=== PATIENT | female | born 1980 | race Caucasian/White ===

== ENCOUNTER 2016-09-12 23:11 | Emergency (ER) | payer OTHER ==
[2016-09-12] MEDS ORDERED: NORMAL SALINE 10 ML SYRINGE FLUSH IVP PRN (23:29)
[2016-09-12 23:34] VITALS: RESP 18; TEMP 97.6
--- NOTE | 2016-09-12 23:40 | PDOC ---
Female Problem HPI - General Chief Complaint: Vag Complaint/Bleed, <20WK IUP Stated Complaint: Heavy bleeding tonight Date Seen by Provider: 09/12/16 Time Seen by Provider: 23:34 Source: POSITIVE: Patient Exam Limitations: POSITIVE: No limitations Nurse's Notes Reviewed & Considered: Yes - History of Present Illness Initial Comments: Patient comes in today with chief complaint of vaginal bleeding. Patient is presently 8 weeks gestation, , status post normal vaginal delivery. Earlier today she was in her normal state of health and stood up to go to the bathroom tonight when she began having heavy vaginal bleeding. She states the blood is dark red she denies any fevers chills or sweats, nausea vomiting or diarrhea, no rashes, denies any abdominal pain or pelvic pain. She has not seen an OB for this present . Body Location Affected: REPORTS: Abdomen Timing: REPORTS: Abrupt Duration: 1 hour Severity: Moderate Quality: REPORTS: Other (Vaginal bleeding) Context: REPORTS: Known Vaginal Bleeding: REPORTS: Abnormal Bleeding, Similar to Periods : 2 Para: 1 : REPORTS: , Positive Test at Home Sexual History: REPORTS: Active Urinary Symptoms: REPORTS: Other (No urinary symptoms) Discharge: REPORTS: Vaginal Discharge (Bloody discharge) Similar Symptoms Previously: No Recent Care Received: REPORTS: Denies Any Prior Injuries Related to Current Complaint?: No - Patient Home Medications Home Medications: Home Medications Pnv No.122/Iron/Folic Acid [ Multi Tablet] 1 tab PO DAILY 09/12/16 - Patient Allergies Allergies/Adverse Reactions: Allergies Allergy/AdvReac Type Severity Reaction Status Date / Time Sulfa (Sulfonamide Allergy Mild VOMITING Verified 09/12/16 23:15 Antibiotics) Past Medical History - heen HEENT History: Denies History Cardiovascular History: Denies History Respiratory History: Denies History Gastrointestinal History: Denies History Genitourinary History: Denies History Endocrine History: Denies History Musculoskeletal History: Denies History Prosthesis or Implant: No Neurological History: Denies History Blood Disorders: Denies History Psychiatric History: Denies History Female Reproductive History: Denies History LMP: 07/15/2016 : 2 Para: 1 Cancer History: Denies History In Past Year Been Physically Harmed or Verbally Threatened: No History of MDRO: No Tobacco Use: Never Smoker Alcohol Use: None Substance Use Type: None Previous Surgical History: Yes Type / Date of Surgery: eustachian tubes, tonsillitis Significant Family History: No pertinent family hx ROS - Limitations ROS Limitations: No Limitations Constitution: REPORTS: Denies Symptoms Cardiovascular: REPORTS: Denies Cardiac Symptoms Respiratory: REPORTS: Denies Resp Symptoms Neurological: REPORTS: Denies Neuro Symptoms Gastrointestinal: REPORTS: Denies GI Symptoms Endocrine: REPORTS: Denies Symptoms Musculoskeletal: REPORTS: Denies MS Symptoms Genitourinary: REPORTS: Other (Dark red vaginal discharge.) Eyes: REPORTS: Denies Symptoms ENT: REPORTS: Denies Symptoms Skin: REPORTS: Denies Skin Symptoms Lympathic: REPORTS: Denies Lympathic Symptoms Immunologic: POSITIVE: Denies Symptoms Psychiatric: POSITIVE: Denies Psych Symptoms Female Genitourinary Exam - General Appearance General Appearance: POSITIVE: Alert, Cooperative, No Acute Distress, No Evidence of Trauma - HEENT HEENT: POSITIVE: Head Inspection Nml, Eyes Inspection Nml, Ears Inspection Nml, Nose Inspection Nml, Oral/Dental Inspect. Nml, Pharynx Inspect. Nml, PERRL, EOMI - Neck Neck: POSITIVE: Normal Inspection, No Apparent Injury - Cardiovascular Cardiovascular: POSITIVE: Regular Rate and Rhythm, Heart Sounds Normal - Abdomen Abdomen: POSITIVE: Soft, Normal Bowel Sounds, Non-Tender, No Distention, No Organomegaly - Back Back: POSITIVE: Normal Inspection - Skin Skin: POSITIVE: Intact, Normal For Race, Warm, Dry, No Rash - Extremities Extremity: Non-Tender: (All Extremities), Normal ROM: (All Extremities), Normal Inspection: (All Extremities) - Neurological / Psychological Neurological: POSITIVE: Affect Apporpriate Female Genitourinary Progress - Results Reviewed by me Xrays/CTs/US Reviewed by me: Yes Discussed with Radiologist: Yes Lab Results Reviewed: Yes Lab Results:: Laboratory Results 09/12/16 09/12/16 09/13/16 Range/Units 23:29 23:34 01:20 WBC 14.45 H (4.8-10.8) 10^3/uL RBC 4.36 (4.20-5.40) 10^6/uL Hgb 13.0 (12.0-16.0) g/dL Hct 38.3 (37.0-47.0) % MCV 87.8 (81-99) FL MCH 29.8 (27-31) PG MCHC 33.9 (33-37) g/dL RDW Std Deviation 40.6 (39-50) fL RDW Coeff of Urban 12.8 (11.5-14.5) % Plt Count 446 H (140-350) 10*3/uL MPV 10.8 (7.4-12.2) FL Immature Gran % (Auto) 0.2 (0-5) % Neut % (Auto) 56.3 (50-80) % Lymph % (Auto) 33.1 (10-50) % Potter % (Auto) 8.2 (5-15) % Eos % (Auto) 1.9 (0-8) % Baso % (Auto) 0.3 (0-1) % Immature Gran # (Auto) 0.03 10*3/UL Neut # (Auto) 8.12 10*3/UL Lymph # (Auto) 4.79 10*3/uL Potter # (Auto) 1.18 H (0.3-0.8) 10*3/UL Eos # (Auto) 0.28 10*3/UL Baso # (Auto) 0.05 10*3/UL WBC Morphology Comment Normal morphology (NORM) Plt Morphology Comment Normal morphology (NORM) RBC Morph Comment Normal morphology (NORM) Sodium 137 (135-145) meq/L Potassium 3.9 (3.8-5.2) meq/L Chloride 105 (98-112) meq/L Carbon Dioxide 23 (23-33) meq/L Anion Gap 9 (5-20) BUN 12 (7-22) mg/dL Creatinine 0.6 (0.50-1.20) mg/dL Estimated GFR > 60 (>60 ml/min/1.73m(2)) BUN/Creatinine Ratio 20.00 (6-20) Glucose 93 (78-110) mg/dL Calculated Osmolality 283.0 (267-292) mOsm/kg Calcium 9.1 (8.7-10.7) mg/dL Magnesium 1.7 (1.6-2.4) mg/dL Total Bilirubin 0.2 L (0.3-1.2) mg/dL AST 19 (8-39) IU/L ALT 29 (9-52) IU/L Alkaline Phosphatase 68 (38-126) IU/L Total Protein 7.2 (6.1-8.0) g/dL Albumin 3.9 (3.5-4.8) g/dL Globulin 3.3 (2.50-4.10) g/dL Albumin/Globulin Ratio 1.10 L (1.3-2.0) mg/g HCG, Quant mIU/ML Ur Collection Type Cath specimen Urine Color Yellow Urine Clarity Clear (CLEAR) Urine pH 6.5 (5.0-8.5) Ur Specific [place] 1.015 (1.005-1.030) Urine Protein Negative (NEG) mg/dl Urine Glucose (UA) Negative (NEG) mg/dL Urine Ketones Negative (NEG) Urine Occult Blood Trace-lysed H (NEG) Urine Nitrate Negative (NEG) Urine Bilirubin Negative (NEG) Urine Urobilinogen 0.2 (0.2) EU/dL Ur Leukocyte Esterase Negative (NEG) Urine RBC 3-6 (NONE) /hpf Urine WBC 1-3 (NONE) Ur Squamous Epith Cells Rare (NONE) Ur Renal Epithelial Cell None (NONE) Urine Crystals None Urine Bacteria Rare (NONE) Urine Casts None (NONE) Urine Mucus None (NONE) Urine Trichomonas None (NONE) Urine Yeast None (NONE) Ur Culture Indicated? Culture not set Blood Type A POSITIVE 09/13/16 Range/Units 01:41 WBC (4.8-10.8) 10^3/uL RBC (4.20-5.40) 10^6/uL Hgb (12.0-16.0) g/dL Hct (37.0-47.0) % MCV (81-99) FL MCH (27-31) PG MCHC (33-37) g/dL RDW Std Deviation (39-50) fL RDW Coeff of Urban (11.5-14.5) % Plt Count (140-350) 10*3/uL MPV (7.4-12.2) FL Immature Gran % (Auto) (0-5) % Neut % (Auto) (50-80) % Lymph % (Auto) (10-50) % Potter % (Auto) (5-15) % Eos % (Auto) (0-8) % Baso % (Auto) (0-1) % Immature Gran # (Auto) 10*3/UL Neut # (Auto) 10*3/UL Lymph # (Auto) 10*3/uL Potter # (Auto) (0.3-0.8) 10*3/UL Eos # (Auto) 10*3/UL Baso # (Auto) 10*3/UL WBC Morphology Comment (NORM) Plt Morphology Comment (NORM) RBC Morph Comment (NORM) Sodium (135-145) meq/L Potassium (3.8-5.2) meq/L Chloride (98-112) meq/L Carbon Dioxide (23-33) meq/L Anion Gap (5-20) BUN (7-22) mg/dL Creatinine (0.50-1.20) mg/dL Estimated GFR (>60 ml/min/1.73m(2)) BUN/Creatinine Ratio (6-20) Glucose (78-110) mg/dL Calculated Osmolality (267-292) mOsm/kg Calcium (8.7-10.7) mg/dL Magnesium (1.6-2.4) mg/dL Total Bilirubin (0.3-1.2) mg/dL AST (8-39) IU/L ALT (9-52) IU/L Alkaline Phosphatase (38-126) IU/L Total Protein (6.1-8.0) g/dL Albumin (3.5-4.8) g/dL Globulin (2.50-4.10) g/dL Albumin/Globulin Ratio (1.3-2.0) mg/g HCG, Quant 11185 mIU/ML Ur Collection Type Urine Color Urine Clarity (CLEAR) Urine pH (5.0-8.5) Ur Specific [place] (1.005-1.030) Urine Protein (NEG) mg/dl Urine Glucose (UA) (NEG) mg/dL Urine Ketones (NEG) Urine Occult Blood (NEG) Urine Nitrate (NEG) Urine Bilirubin (NEG) Urine Urobilinogen (0.2) EU/dL Ur Leukocyte Esterase (NEG) Urine RBC (NONE) /hpf Urine WBC (NONE) Ur Squamous Epith Cells (NONE) Ur Renal Epithelial Cell (NONE) Urine Crystals Urine Bacteria (NONE) Urine Casts (NONE) Urine Mucus (NONE) Urine Trichomonas (NONE) Urine Yeast (NONE) Ur Culture Indicated? Blood Type - Patient's Progress Pain Medication Addressed: POSITIVE: Not Applicable Re-Examine Time: 01:55 Status: POSITIVE: Unchanged MDM / ED Course: Patient is brought into the main emergency department, examined, an IV started, blood drawn and sent to lab for studies an ultrasound was obtained. Laboratory findings: Beta hCG 14,200. White count is 14.4, which elevated at 446. Rh is positive. Comprehensive metabolic panel is unremarkable. Ultrasound shows intrauterine no embryonic heart tones noted. Measures 6 weeks and a by ultrasound. Last menstrual period predicts 9 weeks 2 days. There is a small moderate-sized subchorionic hemorrhage. Assessment: demise. Plan: Discharge home and follow-up with Dr. Amato Wednesday afternoon at 2 PM. - Consult Consult (If Yes, Name of Consulting MD & Time Called): Yes ([id number], Dr. Gonzalez) Consulting MD will see pt:: POSITIVE: In Office Counseled: POSITIVE: Patient, Family, RE: Lab Results, RE: Radiology Results, RE : DX, RE: Need for F/U Patient Care Time - Estimated PCT Patient Care Time (In Minutes): 30 Vital Signs - Recent Vital Signs Vital Signs: Vital Signs (Last 8 hours) Temp Pulse Resp BP Pulse Ox 09/12/16 23:11 97.6 F 66 18 144/78 99 - VS Reviewed Vital Signs Reviewed: Yes Discharge Clinical Impression: Inevitable Discharge Disposition: Discharged to Home Condition: Stable Patient Instructions Given at Discharge: Miscarriage (ED)
[2016-09-12 23:47] LABS: ASPARTATE AMINO TRANSFERASE 19 IU/L (8-39); BILIRUBIN,TOTAL 0.2 mg/dL (0.3-1.2); BLOOD UREA NITROGEN 12 mg/dL (7-22); CALCIUM 9.1 mg/dL (8.7-10.7); CHLORIDE 105 meq/L (98-112); CREATININE 0.6 mg/dL (0.50-1.20); EST GLOMERULAR FILTRATION > 60 (>60 ml/min/1.73m(2)); GLUCOSE 93 mg/dL (78-110); MAGNESIUM 1.7 mg/dL (1.6-2.4); POTASSIUM 3.9 meq/L (3.8-5.2); SODIUM 137 meq/L (135-145); TOTAL PROTEIN 7.2 g/dL (6.1-8.0)
[2016-09-12 23:48] LABS: BASOPHILS # (AUTO) 0.05 10*3/UL; BASOPHILS % (AUTO) 0.3 % (0-1); EOSINOPHILS % (AUTO) 1.9 % (0-8); HEMATOCRIT 38.3 % (37.0-47.0); IMM GRAN % (AUTO) 0.2 % (0-5); IMM GRAN# (AUTO) 0.03 10*3/UL; LYMPHOCYTES # (AUTO) 4.79 10*3/uL; LYMPHOCYTES % (AUTO) 33.1 % (10-50); MEAN CORPUSCULAR HEMOGLOBIN 29.8 PG (27-31); MEAN CORPUSCULAR HGB CONC 33.9 g/dL (33-37); MEAN PLATELET VOLUME 10.8 FL (7.4-12.2); MONOCYTES # (AUTO) 1.18 10*3/UL (0.3-0.8); MONOCYTES % (AUTO) 8.2 % (5-15); NEUTROPHILS # (AUTO) 8.12 10*3/UL; NEUTROPHILS % (AUTO) 56.3 % (50-80); RDW COEFFICIENT OF VARIATION 12.8 % (11.5-14.5); RED BLOOD COUNT 4.36 10^6/uL (4.20-5.40); WHITE BLOOD COUNT 14.45 10^3/uL (4.8-10.8)
[2016-09-12 23:49] LABS: PLATELET MORPHOLOGY COMMENT NORMAL MORPHOLOGY (NORM)
[2016-09-13] LABS: BILIRUBIN,URINE NEGATIVE (NEG); CLARITY,URINE CLEAR (CLEAR); GLUCOSE, URINE (UA) NEGATIVE (NEG); LEUKOCYTE ESTERASE ,URINE NEGATIVE (NEG); NITRATE,URINE NEGATIVE (NEG); OCCULT BLOOD,URINE Trace-lysed (NEG); PH,URINE 6.5 (5.0-8.5); PROTEIN,URINE NEGATIVE (NEG); UROBILINOGEN,URINE 0.2 EU/dL (0.2)
[2016-09-13 00:19] LABS: URINE SAMPLE TYPE CATH SPECIMEN
--- NOTE | 2016-09-13 01:12 | DI ---
HISTORY: Vaginal bleeding. COMPARISON: None. TECHNIQUE: Transvaginal ultrasound of the pelvis was performed. FINDINGS: The uterus measures 9.5 x 4.3 x 6.0 cm. There is an intrauterine fluid collection measurin g 1.6 x 1.3 x 1.5 cm which is most likely a gestational sac. The crown rump length measurement is 2 m m. No heart tones could be identified. There is a small to moderate size subchorionic hemorrhag e within the lower uterine segment. The right ovary was not visualize. The left ovary measures 3.1 x 2.1 x 3.1 cm. There is a small hypoe choic lesion in the left ovary measuring 2.2 x 1.3 x 2.0 cm. This is most likely a cyst. Normal vascu larity is seen within the left ovary. No significant free fluid seen within the pelvis. IMPRESSION: 1. There is an intrauterine . However, no embryonic heart tones could be identified. This me asures six weeks one day by ultrasound. The last menstrual period predicts nine weeks two days. This is discordant. Close interval follow-up beta hCG and ultrasound is recommended. There is a small to m oderate size subchorionic hemorrhage. NOTIFICATION: The above findings were phoned to Shalonda Friedman in the ER Department on 09/13/2016 at 3 :18am EST.
[2016-09-13 01:51] LABS: BACTERIA,URINE RARE; SQUAMOUS EPITHELIAL CELL,UR RARE
== END 2016-09-13 02:45 | disposition home or self-care (01) ==
LOC: ER 23:11
DX: O03.9 Complete or unspecified spontaneous abortion without complication (principal)
CPT/HCPCS: 76801; 80053; 81001; 81003; 83735; 84702; 85025; 86900; 86901; 87210; 87491; 87591; 99283

== ENCOUNTER → 2016-09-14 | Outpatient (CLI) | payer OTHER ==
[2016-09-14 16:12] LABS: BASOPHILS # (AUTO) 0.05 10*3/UL; BASOPHILS % (AUTO) 0.4 % (0-1); EOSINOPHILS % (AUTO) 1.8 % (0-8); HEMATOCRIT 40.2 % (37.0-47.0); HEMOGLOBIN 13.5 g/dL (12.0-16.0); IMM GRAN % (AUTO) 0.2 % (0-5); IMM GRAN# (AUTO) 0.02 10*3/UL; LYMPHOCYTES # (AUTO) 3.61 10*3/uL; MEAN CORPUSCULAR HEMOGLOBIN 29.5 PG (27-31); MEAN CORPUSCULAR HGB CONC 33.6 g/dL (33-37); MONOCYTES # (AUTO) 0.97 10*3/UL (0.3-0.8); MONOCYTES % (AUTO) 7.5 % (5-15); NEUTROPHILS # (AUTO) 8.01 10*3/UL; NEUTROPHILS % (AUTO) 62.1 % (50-80); RDW COEFFICIENT OF VARIATION 12.8 % (11.5-14.5); RED BLOOD COUNT 4.58 10^6/uL (4.20-5.40); WHITE BLOOD COUNT 12.89 10^3/uL (4.8-10.8)
[2016-09-14 16:14] LABS: PLATELET MORPHOLOGY COMMENT NORMAL MORPHOLOGY (NORM)
== END ==
LOC: MOB LAB 15:26
PROVIDERS: ATTEND Obstetrics & Gynecology
DX: O20.0 Threatened abortion (principal)
CPT/HCPCS: 36415; 84702; 85025

== ENCOUNTER → 2016-09-16 | Outpatient (CLI) | payer OTHER | LOC: LAB 10:04 | PROVIDERS: ATTEND Obstetrics & Gynecology | DX: O20.0 Threatened abortion (principal) | CPT/HCPCS: 36415; 84702 ==

== ENCOUNTER → 2016-09-17 | Outpatient (CLI) | payer OTHER ==
[2016-09-17 10:57] LABS: BASOPHILS # (AUTO) 0.02 10*3/UL; BASOPHILS % (AUTO) 0.2 % (0-1); EOSINOPHILS % (AUTO) 1.5 % (0-8); HEMATOCRIT 38.9 % (37.0-47.0); HEMOGLOBIN 13.1 g/dL (12.0-16.0); IMM GRAN % (AUTO) 0.1 % (0-5); IMM GRAN# (AUTO) 0.01 10*3/UL; LYMPHOCYTES # (AUTO) 2.38 10*3/uL; LYMPHOCYTES % (AUTO) 27.8 % (10-50); MEAN CORPUSCULAR HGB CONC 33.7 g/dL (33-37); MEAN PLATELET VOLUME 10.7 FL (7.4-12.2); MONOCYTES # (AUTO) 0.71 10*3/UL (0.3-0.8); MONOCYTES % (AUTO) 8.3 % (5-15); NEUTROPHILS % (AUTO) 62.1 % (50-80); RDW COEFFICIENT OF VARIATION 12.7 % (11.5-14.5); RED BLOOD COUNT 4.37 10^6/uL (4.20-5.40); WHITE BLOOD COUNT 8.55 10^3/uL (4.8-10.8)
[2016-09-17 11:11] LABS: ASPARTATE AMINO TRANSFERASE 20 IU/L (8-39); BILIRUBIN,TOTAL 0.3 mg/dL (0.3-1.2); BLOOD UREA NITROGEN 6 mg/dL (7-22); CALCIUM 8.9 mg/dL (8.7-10.7); CHLORIDE 104 meq/L (98-112); CREATININE 0.6 mg/dL (0.50-1.20); EST GLOMERULAR FILTRATION > 60 (>60 ml/min/1.73m(2)); GLUCOSE 87 mg/dL (78-110); SODIUM 138 meq/L (135-145); TOTAL PROTEIN 7.9 g/dL (6.1-8.0)
[2016-09-17 11:37] LABS: PLATELET MORPHOLOGY COMMENT NORMAL MORPHOLOGY (NORM)
== END ==
LOC: MOB LAB 10:38
PROVIDERS: ATTEND Obstetrics & Gynecology
DX: O02.1 Missed abortion (principal); R50.9 Fever, unspecified
CPT/HCPCS: 36415; 80053; 84702; 85025

== ENCOUNTER 2016-09-18 06:04 | Day surgery (SDC) | payer OTHER ==
[2016-09-18] MEDS ORDERED: LIDOCAINE W/ SODIUM BICARB 0.5 ML SYR ONE (06:08)
[2016-09-18] MEDS ORDERED: Lactated Ringers 1,000 ML PRIMARY IV ONE ×2 (06:08→07:41)
[2016-09-18] MEDS ORDERED: Sodium Chloride 0.9% 100 ML IV ONE (06:09)
[2016-09-18] MEDS ORDERED: MIDAZOLAM 5 MG/1 ML ONE (06:42)
[2016-09-18] MEDS ORDERED: LIDOCAINE MPF 2% - 5 ML (20 MG/1 ML) ONE (06:42)
[2016-09-18] MEDS ORDERED: fentaNYL Inj 250 MCG/5 ML VIAL ONE (06:42)
--- NOTE | 2016-09-18 06:49 | OB.OP.NOTE ---
Operative Report Surgeon: Lm Anesthesia Type: General (With LMA) Anesthesia Provider: Jitendra Mario CRNA Surgery Date: 09/18/16 Preoperative Diagnosis: Missed AB Postoperative Diagnosis: Same Procedure: Exam under anesthesia, suction D&C Estimated Blood Loss (mL): 200 (with POC and saline) Fluids: 1000 mL LR. Catheterized clear urine 150 cc before procedure Complications: None apparent No evidence of uterine perforation There was a good endometrial crigh in all 4 quadrants of the uterus after the suction D&C Findings at Surgery: There is a fair amount of products of conception suctioned during the D&C. There was good hemostasis after the completion of the D&C. Methergine 0.2 mg IM was administered Indications for the Procedure: The patient is a 35-year-old 001 LMP 07/10/2016 who has a missed AB by ultrasound and quantitative hCGs of 14,200 then 13,850 then 11,769, then 10,425 yesterday. The patient has had an intermittent low-grade fever this week but no abdominal pain. She has had some cramping. Two nights ago the patient had a temperature of 100.1 and some dizziness or lightheadedness. Yesterday morning she felt fine but she did call secondary to her symptoms the night before. The patient states that she ate breakfast yesterday morning and was hungry. The patient is having bowel movements. She does not have abdominal pain. Yesterday I saw the patient and checked a white count. Her white count was 8.5. She did not look toxic. The patient did not want surgery if she could avoid it. We discussed her options again and with her low-grade fever that she had, I thought expectant management was not an option. I offered to do a D&C yesterday. The patient did not want to do this. The patient wanted to try Cytotec. I prescribed 800 g but gave her an ACOG will attend on early loss. In that bulletin it described 400 g versus 800 g and we discussed that. I prescribed the 800 g but the patient took 400 g last evening around 1800 hrs. I contacted the patient last evening around 2130 hrs. and the patient had some cramping but no bleeding. This morning, the patient states she passed some clots but did not think it was tissue and is still having cramping. Last night the patient did not have a fever. She did not take her temperature but she did not feel warm. The patient did take some hydrocodone/Tylenol secondary to the cramping and also a promethazine for nausea prevention with the narcotic. This morning, We discussed administration another dose of Cytotec versus surgery and the patient opted for surgery. Her quantitative hCGs slowly dropped but not precipitously signifying that there is still some tissue that needs to be removed. With her low-grade fevers, I would like to do a D&C and the patient has agreed. The consent form was signed yesterday. The patient is in agreement. Past medical history without hypertension, asthma, diabetes Past surgical history ear surgery and tonsils Allergies to sulfa No tobacco, no alcohol, no drugs [employer] history of menarche age 15, no STI history, positive abnormal Pap smear history but last couple Pap smears were normal and last Pap smear was within the last year OB history with vaginal delivery 1 near term. No complications. The patient' s daughter does have some congenital anomalies including bilateral hip dysplasia and some cardiac anomalies and significant scoliosis. Her daughter is 3 years old now. Description of Procedure: The patient was taken to the OR after the risks, benefits, alternatives and indications of a suction D&C were discussed with the patient and the consent form had been signed the day before. The patient underwent general anesthesia with LMA in the usual fashion. The patient was placed in the [facility] stirrups in the dorsal lithotomy position. The patient was prepped and draped sterilely in the usual fashion. A timeout was completed and the patient and procedures were identified I placed a catheter through the patient's urethra into the bladder and the bladder was drained of about 150 mL of clear urine I then placed a weighted speculum posteriorly and a Smith retractor anteriorly and the cervix was visualized and I placed a single-tooth tenaculum on the anterior lip of the cervix. I sounded the uterus to 9-1/2-10 cm and there was no evidence of perforation. I then asked for a #8 curved curet for the suction D&C. I then dilated the patient's cervix with the Hunter dilators up to a #30. This occurred very easily because the patient had administered 400 g of Cytotec vaginally at 1800 hrs. the evening before. The suction curet was then tested. The suction was appropriate. The suction curet was then placed through the cervix into the uterine cavity with no evidence of perforation. Suction was applied and there was products of conception suctioned. There were several passes of the suction curet and products of conception were obtained each time. Then I stopped the suction curet and used a sharp curette and had a endometrial crigh from 3:00 to 9:00 but not at the 12:00 area. I then used the suction curet again and obtained some POC around the 12:00 area. I then used a sharp curet again and obtained a good endometrial crigh in all areas of the endometrial cavity. I gently curetted because the patient does want more children. Again, there was no evidence of uterine perforation at any time. The suction D&C was then completed. Methergine 0.2 mg IM was administered by anesthesia. I then removed the single-tooth tenaculum from the anterior lip of the cervix and the cervix was still bleeding from the left side of the tenaculum site so I placed a [id number] suture of 4-0 Vicryl suture 1 and there was good hemostasis. There was good hemostasis from the patient's cervix and from the tenaculum site. A gentle bimanual exam was completed after the weighted speculum was removed. The uterus was mobile and firm and there was minimal bleeding if any. A sponge stick was placed in the patient's vagina just to clean out all blood in the vagina. The procedure was completed. Sponge lap and needle counts were correct 2. Instrument counts were correct 2 The patient was awakened from her general anesthesia with LMA and brought to the PACU in stable condition. Plan: The patient will be observed and then hopefully go home later this morning. I will prescribe Methergine 0.2 mg by mouth 3 times a day for 2 days. Ibuprofen and hydrocodone. Stool softener as needed. The patient will follow up with me next week.
[2016-09-18] MEDS ORDERED: METHYLERGONOVINE MALEATE 0.2 MG/1 ML VIAL IM ONE (07:36)
[2016-09-18] MEDS ORDERED: ONDANSETRON 4 MG/2 ML VIAL IVP PRN (08:04)
[2016-09-18] MEDS ORDERED: HYDROcodone-APAP 5 MG -325 MG TABLET PO PRN (08:04)
[2016-09-18] MEDS ORDERED: NORMAL SALINE 10 ML SYRINGE FLUSH IVP PRN (08:04)
[2016-09-18 08:10] VITALS: RESP 14
[2016-09-18] MEDS ORDERED: Lactated Ringers 1,000 ML PRIMARY IV SCH (08:15)
[2016-09-18 14:09] VITALS: TEMP 97.8
== END 2016-09-18 10:15 | disposition home or self-care (01) ==
LOC: SDSC 06:04
PROVIDERS: ATTEND Obstetrics & Gynecology
DX: O02.1 Missed abortion (principal)
CPT/HCPCS: 36415; 59820; 86850; 86900; 86901; J0694; J2704; J3010; J2001; J2210; J2250; J7050; J7120